=== PATIENT | male | born 1980 | race Caucasian/White ===

== ENCOUNTER → 2020-11-15 | Outpatient (CLI) | payer OTHER ==
[~2020-11-15] MED LIST: MOTRIN800 MG PO
== END | disposition home or self-care (01) ==
LOC: COVID19 09:54
PROVIDERS: ATTEND Student in an Organized Health Care Education/Training Program
DX: U07.1 COVID-19 (principal)

== ENCOUNTER 2022-12-10 00:17 | Emergency (ER) | payer OTHER ==
[~2022-12-10] VITALS: Ht 182.8 cm; Wt 95.3 kg
[2022-12-10] MEDS ORDERED: CEPHALEXIN500 M1 PO (00:49)
== END 2022-12-10 01:04 | disposition home or self-care (01) ==
LOC: ED 00:17
DX: S61.001A Unspecified open wound of right thumb without damage to nail, initial encounter (principal); Z98.890 Other specified postprocedural states; W45.8XXA Other foreign body or object entering through skin, initial encounter; Y93.G3 Activity, cooking and baking; Y92.89 Other specified places as the place of occurrence of the external cause; Y99.8 Other external cause status